=== PATIENT | female | born 1985 ===

== ENCOUNTER 2018-05-22 06:42 | Emergency (ER) | payer BC, OTHER ==
[2018-05-22 06:56] VITALS: O2SAT 97
--- NOTE | 2018-05-22 07:07 | C.PDOC ---
History Of Present Illness 33 y/o female with a PMHx of seasonal allergies, presents to the ED complaining of right-sided abdominal pain that began 3 days ago. Pain is intermittent and described as pressure-like. Associated with constipation and flatulence. Patient has not had a BM since Friday. LMP was 04/26/18. Patient was seen at urgent care yesterday for the pain, and referred for ultrasound. States she came here instead for reevaluation. Otherwise patient denies any nausea, vomiting, diarrhea, fever, or chills. Time Seen by Provider: 05/22/18 07:04 Chief Complaint (Nursing): Abdominal Pain History Per: Patient History/Exam Limitations: no limitations Onset/Duration Of Symptoms: Days (x4) Current Symptoms Are (Timing): Still Present Location Of Pain/Discomfort: RUQ Quality Of Discomfort: "Pain" Past Medical History Reviewed: Historical Data, Nursing Documentation, Vital Signs Vital Signs: Last Vital Signs Temp 98.5 F 05/22/18 06:51 Pulse 84 05/22/18 06:51 Resp 20 05/22/18 06:51 BP 110/72 05/22/18 06:51 Pulse Ox 97 05/22/18 06:51 - Medical History PMH: Asthma Family History: States: Unknown Family Hx - Social History Hx Alcohol Use: Yes Hx Substance Use: Yes - Immunization History Hx Tetanus Toxoid Vaccination: No Hx Influenza Vaccination: No Hx Pneumococcal Vaccination: No Review Of Systems Except As Marked, All Systems Reviewed And Found Negative. Constitutional: Negative for: Fever, Chills Cardiovascular: Negative for: Chest Pain Respiratory: Negative for: Shortness of Breath Gastrointestinal: Positive for: Abdominal Pain (Right-sided), Constipation (and flatulence). Negative for: Nausea, Vomiting, Diarrhea Physical Exam - Physical Exam Appears: Non-toxic, No Acute Distress Skin: Warm, Dry Head: Atraumatic, Normacephalic Eye(s): bilateral: Normal Inspection, PERRL, EOMI Oral Mucosa: Moist Neck: Normal ROM Chest: Symmetrical Cardiovascular: Rhythm Regular, No Murmur Respiratory: Normal Breath Sounds, No Rales, No Rhonchi, No Wheezing Gastrointestinal/Abdominal: Soft, Tenderness (to the right upper quadrant), No Guarding, No Rebound Extremity: Bilateral: Atraumatic, Normal Color And Temperature Pulses: Left Radial: Normal, Right Radial: Normal Neurological/Psych: Oriented x3, Normal Speech ED Course And Treatment - Laboratory Results Result Diagrams: 05/22/18 07:33 05/22/18 08:37 O2 Sat by Pulse Oximetry: 97 (RA) Pulse Ox Interpretation: Normal - Other Rad Abd X-Ray X-Ray: Read By Radiologist Interpretation: Accession No. : [id number]. Patient Name / ID : TIM TANNER / [id number]. Exam Date : 05/22/2018 07:43:52 ( Approved ). Study Comment : Sex / Age : F / 33Y. Creator : Pilar Melvin MD. Dictator : Pilar Melvin MD. Toll Transmission Worker : Commercial Stripper : Pilar Melvin MD. Approver2 : Report Date : 05/22/2018 08:15:04. My Comment : . Date of service: 05/22/2018. HISTORY: constipation. COMPARISON: None available. FINDINGS: BOWEL: There is moderate amount of stool in the ascending colon. The is mild dilatation of small bowel loops in the left abdomen. There is no free intraperitoneal air or differential air-fluid levels. BONES: Normal. OTHER FINDINGS: None. IMPRESSION: Nonspecific nonobstructive bowel gas pattern. - CT Scan/US Abdominal US Other Rad Studies (CT/US): Read By Radiologist, Radiology Report Reviewed CT/US Interpretation: Accession No. : [id number]. Patient Name / ID : TIM TANNER / [id number]. Exam Date : 05/22/2018 08:03:24 ( Approved ). Study Comment : Sex / Age : F / 33Y. Creator : Pilar Melvin MD. Dictator : Pilar Melvin MD. Toll Transmission Worker : Commercial Stripper : Pilar Melvin MD. Approver2 : Report Date : 05/22/2018 09:06:11. My Comment : . Date of service: 05/22/2018. HISTORY: Abdominal pain. COMPARISON: None. TECHNIQUE: Grayscale imaging was performed. FINDINGS: LIVER: Measures 15.1 cm. There is diffuse increased echogenicity of the liver parenchyma. No mass. No intrahepatic bile duct dilatation. GALLBLADDER: There are no gallstones, wall thickening or pericholecystic fluid. The sonographic Yeung's sign is negative. COMMON BILE DUCT: Measures 4.0 mm. No stones. No dilatation. PANCREAS: Unremarkable as visualized. No mass. No ductal dilatation. RIGHT KIDNEY: Measures 10.9cm. Normal echogenicity. No calculus, mass, or hydronephrosis. LEFT KIDNEY: Measures 10.5cm. Normal echogenicity. No calculus, mass, or hydronephrosis. SPLEEN: Normal in size and contour. No mass. AORTA: No aneurysmal dilatation. IVC: Unremarkable. OTHER FINDINGS: None. IMPRESSION: Fatty liver. No cholelithiasis or biliary dilatation. Medical Decision Making Medical Decision Making: Impression: Abdominal Pain, r/o biliary disease, r/o constipation Plan: --Blood work --UA --Abdominal/Renal US --Abdominal x-ray, flat plate --Tylenol PO Progress: US negative for biliary disease. X-ray shows moderate constipation. Given fleet's enema in the ED. Patient is stable for discharge home. Counseled regarding diagnosis and follow- up instructions. Disposition - Disposition Referrals: [facility] [Outside] [facility] at [facility] [Outside] [facility] [place] [Outside] Disposition: HOME/ ROUTINE Disposition Time: 09:22 Condition: GOOD Additional Instructions: Please increase fiber in your diet and take colace as directed. Follow up with your PCP or medicine clinic. Prescriptions: Docusate Sodium [Colace] 100 mg PO Q12 #14 capsule Instructions: Constipation in Adults Forms: [employer] ([place]) - Clinical Impression Clinical Impression: Abdominal pain - Scribe Statement The provider has reviewed the documentation as recorded by the Harpreet Em Provider Attestation: All medical record entries made by the Harpreet were at my direction and personally dictated by me. I have reviewed the chart and agree that the record accurately reflects my personal performance of the history, physical exam, medical decision making, and the department course for this patient. I have also personally directed, reviewed, and agree with the discharge instructions and disposition.
[2018-05-22 07:34] LABS: HCG,QUALITATIVE URINE NEGATIVE (NEGATIVE)
[2018-05-22 07:36] LABS: BASO # 0.1 K/uL (0.0-0.2); BASO % 0.7 % (0.0-2.0); EOS # 0.2 K/uL (0.0-0.7); EOS % 1.6 % (0.0-4.0); HEMOGLOBIN 13.1 g/dL (11.0-16.0); LYMPH # 3.5 K/uL (1.0-4.3); MEAN CELL VOLUME 85.5 fL (81.0-99.0); MEAN CORPUSCULAR HEMOGLOBIN 29.2 pg (27.0-31.0); MEAN CORPUSCULAR HGB CONC 34.1 g/dL (33.0-37.0); MEAN PLATELET VOLUME 8.8 fL (7.2-11.7); MONO # 0.7 K/uL (0.0-0.8); MONO % 6.3 % (0.0-10.0); NEUT # 6.9 K/uL (1.8-7.0); NEUT % 60.4 % (50.0-75.0); NRBC % 0.1 % (0.0-2.0); RBC 4.5 Mil/uL (3.80-5.20); RED CELL DISTRIBUTION WIDTH 14.1 % (11.5-14.5); WHITE BLOOD COUNT 11.4 K/uL (4.8-10.8)
[2018-05-22 07:41] LABS: SQUAMOUS EPITHIAL 2 /hpf (0-5); URINE BACTERIA FEW (<OCC); URINE BILIRUBIN NEGATIVE (NEGATIVE); URINE BLOOD 1+ (NEGATIVE); URINE CLARITY Clear (Clear); URINE COLOR Yellow (YELLOW); URINE GLUCOSE (UA) NORMAL (Normal); URINE LEUKOCYTE ESTERASE NEG Leu/uL (Negative); URINE PROTEIN NEGATIVE (NEGATIVE); URINE UROBILINOGEN NORMAL mg/dL (0.2-1.0)
--- NOTE | 2018-05-22 08:18 | RAD ---
Date of service: 05/22/2018 HISTORY: constipation COMPARISON: None available. FINDINGS: BOWEL: There is moderate amount of stool in the ascending colon. The is mild dilatation of small bowel loops in the left abdomen. There is no free intraperitoneal air or differential air-fluid levels BONES: Normal. OTHER FINDINGS: None. IMPRESSION: Nonspecific nonobstructive bowel gas pattern.
[2018-05-22 08:54] LABS: ALB/GLOB RATIO 1.2 (1.0-2.1); ALT/SGPT 19 U/L (9-52); AST/SGOT 25 U/L (14-36); BLOOD UREA NITROGEN 13 mg/dL (7-17); CALCIUM 8.7 mg/dl (8.6-10.4); GFR NON-AFRICAN AMERICAN > 60; LIPASE 96 U/L (23-300)
--- NOTE | 2018-05-22 09:10 | US ---
Date of service: 05/22/2018 HISTORY: Abdominal pain COMPARISON: None. TECHNIQUE: Grayscale imaging was performed. FINDINGS: LIVER: Measures 15.1 cm. There is diffuse increased echogenicity of the liver parenchyma. No mass. No intrahepatic bile duct dilatation. GALLBLADDER: There are no gallstones, wall thickening or pericholecystic fluid. The sonographic Yeung's sign is negative. COMMON BILE DUCT: Measures 4.0 mm. No stones. No dilatation. PANCREAS: Unremarkable as visualized. No mass. No ductal dilatation. RIGHT KIDNEY: Measures 10.9cm. Normal echogenicity. No calculus, mass, or hydronephrosis. LEFT KIDNEY: Measures 10.5cm. Normal echogenicity. No calculus, mass, or hydronephrosis. SPLEEN: Normal in size and contour. No mass. AORTA: No aneurysmal dilatation. IVC: Unremarkable. OTHER FINDINGS: None. IMPRESSION: Fatty liver. No cholelithiasis or biliary dilatation.
[2018-05-22 09:22] VITALS: BP 111/72; PULSE 65; RESP 17; TEMP 98
== END 2018-05-22 09:28 | disposition home or self-care (01) ==
LOC: C.ER 06:42
DX: R10.11 Right upper quadrant pain (principal)